=== PATIENT | male | born 1940 | race Caucasian/White ===

== ENCOUNTER 2020-07-21 12:23 | Observation (INO) ==
[~2020-07-21 12:23] MED LIST: Buffered Lidocaine 1% SYRIN 1 ml INTRADERM ONE; Dexamethasone IV 4 MG/ML VIAL 1 ml VIAL IV SLOW PU ONE; Famotidine IV 10 MG/ML 2 ml VIAL (20 mg) IV ONE; Lactated Ringers 1000 ml BAG 1,000 ML IV SCH
[2020-07-21] MEDS ORDERED: ceFAZolin 2 GM PREMIX 2 GM/50 ML BAG ONE (12:34)
[2020-07-21] MEDS ORDERED: Dexamethasone IV 4 MG/ML VIAL 1 ml VIAL ONE (12:34)
[2020-07-21] MEDS ORDERED: Famotidine IV 10 MG/ML 2 ml VIAL (20 mg) ONE (12:35)
[2020-07-21] MEDS ORDERED: Acetaminophen IV 1 GM/100ML 1,000 MG/100 ML VIAL IVPB ONE (14:28)
[2020-07-21] MEDS ORDERED: Naloxone 0.4 mg VIAL 0.4 mg/ml 1 ml VIAL IV PRN (14:28)
[2020-07-21] MEDS ORDERED: Prochlorperazine 5 mg/ml 2 ml VIAL (10 mg) IV PRN (14:28)
[2020-07-21] MEDS ORDERED: Morphine 4 MG/ML VIAL (1 ml) IV PRN (14:28)
[2020-07-21] MEDS ORDERED: fentaNYL 100 mcg/2 ml 50 MCG/ML VIAL ONE ×2 (14:32→18:10)
[2020-07-21] MEDS ORDERED: Lidocaine 2% PF 5 ML VIAL ONE (14:32)
[2020-07-21] MEDS ORDERED: Midazolam 2 mg/2 ml VIAL 1 mg/ml 2 ml VIAL (2 mg) ONE (14:32)
[2020-07-21] MEDS ORDERED: diPHENhydraMINE 25 mg TAB PO PRN (16:10)
[2020-07-21] MEDS ORDERED: Ondansetron 4 mg VIAL 2 MG/ML 2 ml VIAL IV PRN (16:10)
[2020-07-21] MEDS ORDERED: diPHENhydraMINE IV 50 MG/ML 1 ml VIAL (BENADRYL) IV PRN (16:10)
[2020-07-21] MEDS ORDERED: Magnesium Hydroxide LIQ 30 ML UDC PO PRN (16:10)
[2020-07-21] MEDS ORDERED: Lactulose 30 ml UDC PO PRN (16:10)
[2020-07-21] MEDS ORDERED: Ondansetron ODT 4 mg TAB 4 MG TAB PO PRN (16:10)
[2020-07-21] MEDS ORDERED: Morphine 2 MG/ML SYRINGE IV PRN (16:10)
[2020-07-21] MEDS ORDERED: Propofol 10 mg/ml 100 ML BTL 100 ML ONE (17:48)
[2020-07-21] MEDS ORDERED: EPHEDrine (Pressors) 50 MG/ML VIAL ONE (17:49)
[2020-07-21] MEDS ORDERED: Acetaminophen IV 1 GM/100ML 100 ML ONE (18:10)
[2020-07-21] MEDS: fentaNYL 100 mcg/2 ml 50 MCG/ML VIAL IV PRN ×2 (18:27→19:18)
[2020-07-21] MEDS: Lactated Ringers 1000 ml BAG 1,000 ML IV SCH (20:01)
[2020-07-21] MEDS: ceFAZolin 1 GM ADVAN 1 GM in NS 0.9% 50 ML 50 ML IVPB SCH ×3 (21:25→23:53)
[2020-07-21] MEDS: Magnesium Hydroxide LIQ 30 ML UDC PO SCH (22:17)
[2020-07-21] MEDS: oxyCODONE/Acetamin 5/325 mg TAB PO PRN (22:17)
[2020-07-22] MEDS: oxyCODONE/Acetamin 5/325 mg TAB PO PRN ×2 (04:09→12:15)
[2020-07-22] MEDS: Lactated Ringers 1000 ml BAG 1,000 ML IV SCH (06:29)
[2020-07-22 07:04] LABS: Hematocrit 35 % (42-52); Mean Platelet Volume 8.8 fL (7.4-10.4); Platelet Count 176 10^3/uL (150-450)
[2020-07-22 07:19] LABS: BUN/Creatinine Ratio 26.8 (8-20); Calcium 8.7 mg/dL (8.6-10.3); EGFR African American 89.7 (>60); EGFR Non-African American 74.1 (>60); Potassium 4.4 mmol/L (3.5-5.0)
[2020-07-22] MEDS: ceFAZolin 1 GM ADVAN 1 GM in NS 0.9% 50 ML 50 ML IVPB SCH (07:58)
[2020-07-22] MEDS: Magnesium Hydroxide LIQ 30 ML UDC PO SCH (08:01)
[2020-07-22] MEDS ORDERED: Vitamin THERAPEUTIC TAB PO SCH (09:00)
[2020-07-22 11:10] VITALS: BP 117/53
[2020-07-22 11:33] LABS: Urine Appearance Clear; Urine Bilirubin Negative (Negative); Urine Blood Negative (Negative); Urine Color Yellow; Urine Glucose Negative (Negative); Urine Ketones Trace (Negative); Urine Nitrite Negative (Negative); Urine Protein Negative (Negative); Urine Specific Gravity 1.029 (1.010-1.030); Urine Urobilinogen Negative (Negative)
== END 2020-07-22 13:05 | disposition home or self-care (01) ==
LOC: OR 12:23 → SSU 12:23
PROVIDERS: ADMIT Orthopaedic Surgery Adult Reconstructive Orthopaedic Surgery; ATTEND Orthopaedic Surgery Adult Reconstructive Orthopaedic Surgery

== ENCOUNTER 2024-06-24 07:55 | Inpatient (IN) ==
[2024-06-24 08:43] LABS: Hematocrit 39.9 % (38-53); Hemoglobin 13.5 g/dL (13.2-16.3); Mean Corpuscular Hemoglobin 26.7 pg (27-33); Mean Corpuscular Hgb Conc 33.8 g/dL (31-36); Mean Platelet Volume 7.7 fL (7.5-11.2); Platelet Count 195 10^3/uL (150-450); Red Blood Count 5.05 10^6/uL (4.06-5.63); Red Cell Distribution Width 15.3 % (12-17); White Blood Count 2.4 10^3/uL (3.6-10.2)
[2024-06-24] MEDS: Lactated Ringers SEPSIS* BAG 2,040 ML IV ONE (08:48)
[2024-06-24 08:53] LABS: Activated Partial Thrombo Time 32.7 seconds (26.0-38.0); INR 1.15 (0.85-1.14)
[2024-06-24 09:26] LABS: Albumin 4.4 g/dL (3.2-5.2); Albumin/Globulin Ratio 1.7 (1-3); C Reactive Protein 66.3 mg/L (<8.01); Calcium 9.3 mg/dL (8.6-10.3); Creatinine, Serum 1.35 mg/dL (0.67-1.17); Globulin 2.6 g/dL (2-4); Potassium 4.3 mmol/L (3.5-5.0); Total Bilirubin 0.7 mg/dL (0.2-1.0); eGFR CKD-EPI 51.1 (>60)
[2024-06-24 09:38] LABS: ABS Lymphocytes 1.2 10^3/uL (1.0-4.8); ABS Neutrophils 1.2 10^3/uL (1.5-7.6); ABS Nucleated RBC 0.01 10^3/ul; Eosinophil % 0.9 %; Lymphocyte % 49.7 %; Nucleated Red Blood Cells % 0.4 %/100WBC (0.0-0.8)
[2024-06-24] MEDS: cefTRIAXone 1 gm/50 mL D5W 1 GM/50 ML BAG IV ONE (10:45)
[2024-06-24] MEDS ORDERED: Fluticasone NASAL SPRAY 50MCG 16 gm SPRAY BTL INTRANASAL PRN (11:04)
[2024-06-24] MEDS ORDERED: Albuterol/Ipratropium NEB.SOL (2.5/0.5 MG) 3 ML NEB.SOLN INH PRN (11:04)
[2024-06-24] MEDS: Azithromycin 500 mg/250 ml NS 500 MG/250 ML BAG IVPB ONE (11:35)
[2024-06-24] MEDS: Calcium/Vitamin D TAB 250/125 TAB PO SCH (13:45)
[2024-06-24] MEDS: Lactated Ringers 1000 ml BAG 1,000 ML IV SCH (13:46)
[2024-06-24] MEDS: Aspirin EC 81 mg TAB.EC (enteric coated) PO SCH (15:49)
[2024-06-24] MEDS: Albuterol/Ipratropium NEB.SOL (2.5/0.5 MG) 3 ML NEB.SOLN INH SCH (19:29)
[2024-06-24] MEDS: Enoxaparin 40 MG/0.4 ML SYR SUBCUT SCH (20:33)
[2024-06-25 06:33] LABS: Hematocrit 35.2 % (38-53); Hemoglobin 11.8 g/dL (13.2-16.3); Mean Corpuscular Hemoglobin 26.4 pg (27-33); Mean Corpuscular Hgb Conc 33.5 g/dL (31-36); Mean Platelet Volume 8.3 fL (7.5-11.2); Platelet Count 153 10^3/uL (150-450); Red Blood Count 4.45 10^6/uL (4.06-5.63); Red Cell Distribution Width 15.3 % (12-17); White Blood Count 2.9 10^3/uL (3.6-10.2)
[2024-06-25 06:52] LABS: Calcium 8.4 mg/dL (8.6-10.3); Creatinine, Serum 0.95 mg/dL (0.67-1.17); Magnesium 1.7 mg/dL (1.9-2.7); Potassium 4.2 mmol/L (3.5-5.0)
[2024-06-25 08:03] LABS: ABS Lymphocytes 1.7 10^3/uL (1.0-4.8); ABS Neutrophils 1.1 10^3/uL (1.5-7.6); ABS Nucleated RBC 0.01 10^3/ul; Eosinophil % 1.1 %; Lymphocyte % 58.3 %; Nucleated Red Blood Cells % 0.4 %/100WBC (0.0-0.8)
[2024-06-25] MEDS: cefTRIAXone 1 gm/50 mL D5W 1 GM/50 ML BAG IV SCH (09:01)
[2024-06-25] MEDS: Azithromycin 500 mg/250 ml NS 500 MG/250 ML BAG IVPB SCH (09:54)
[2024-06-25 10:03] LABS: Urine Appearance Clear; Urine Bilirubin Negative (Negative); Urine Blood Negative (Negative); Urine Color Yellow; Urine Glucose Negative (Negative); Urine Ketones Negative (Negative); Urine Nitrite Negative (Negative); Urine Protein 1+ (>=30 mg/dL) (Negative); Urine Specific Gravity 1.027 (1.002-1.030); Urine Urobilinogen Negative (Negative)
[2024-06-25 10:07] LABS: Urine Bacteria Absent /HPF (Absent); Urine Red Blood Cell 1+(3-5/hpf) /HPF (0-Trace); Urine White Blood Cell Trace(0-5/hpf) /HPF (0-Trace)
[2024-06-25] MEDS: Magnesium Sulfate 2 gm BAG 2 GM/50 ML BAG IVPB ONE (11:08)
[2024-06-25] MEDS: Albuterol/Ipratropium NEB.SOL (2.5/0.5 MG) 3 ML NEB.SOLN INH SCH (13:07)
[2024-06-26 06:50] LABS: Hematocrit 32.5 % (38-53); Hemoglobin 11.1 g/dL (13.2-16.3); Mean Corpuscular Hemoglobin 26.9 pg (27-33); Mean Corpuscular Hgb Conc 34.1 g/dL (31-36); Mean Platelet Volume 8.1 fL (7.5-11.2); Platelet Count 160 10^3/uL (150-450); Red Blood Count 4.12 10^6/uL (4.06-5.63); Red Cell Distribution Width 15.3 % (12-17); White Blood Count 2.9 10^3/uL (3.6-10.2)
[2024-06-26 07:06] LABS: Calcium 8.3 mg/dL (8.6-10.3); Creatinine, Serum 0.98 mg/dL (0.67-1.17); Magnesium 2.1 mg/dL (1.9-2.7); Potassium 3.9 mmol/L (3.5-5.0); eGFR CKD-EPI 75.1 (>60)
[2024-06-26 07:28] LABS: ABS Neutrophils 0.9 10^3/uL (1.5-7.6)
[2024-06-26 07:32] LABS: ABS Eosinophils 0.1 10^3/uL (0.0-0.5); ABS Lymphocytes 1.8 10^3/uL (1.0-4.8); Lymphocyte % 62.7 %; Nucleated Red Blood Cells % 0.1 %/100WBC (0.0-0.8)
[2024-06-27 05:14] VITALS: BP 120/62
[2024-06-27 06:16] LABS: Hematocrit 31.7 % (38-53); Hemoglobin 10.9 g/dL (13.2-16.3); Mean Corpuscular Hemoglobin 27.1 pg (27-33); Mean Corpuscular Hgb Conc 34.5 g/dL (31-36); Mean Corpuscular Volume 78.4 fL (80-97); Mean Platelet Volume 7.9 fL (7.5-11.2); Platelet Count 182 10^3/uL (150-450); Red Blood Count 4.04 10^6/uL (4.06-5.63); Red Cell Distribution Width 15.3 % (12-17)
[2024-06-27 06:59] LABS: Calcium 8.5 mg/dL (8.6-10.3); eGFR CKD-EPI 73.3 (>60)
[2024-06-27 07:43] LABS: ABS Eosinophils 0.1 10^3/uL (0.0-0.5); ABS Lymphocytes 1.9 10^3/uL (1.0-4.8); ABS Neutrophils 0.9 10^3/uL (1.5-7.6); Anisocytosis 2+; Eosinophil % 3.2 %; Microcytosis 1+; Nucleated Red Blood Cells % 0.1 %/100WBC (0.0-0.8)
[2024-06-27 13:20] LABS: Anaplasma phagocytophilum Negative (Negative); B. miyamotoi PCR, B Negative (Negative); Babesia divergens/MO-1 Negative (Negative); Babesia ducani Negative (Negative); Ehrlichia chaffeensis Negative (Negative); Ehrlichia ewingii/canis Negative (Negative); Ehrlichia muris eauclairensis Negative (Negative)
== END 2024-06-27 09:30 | disposition home or self-care (01) | DRG 871 ==
LOC: EDHOLD 07:55 → ED 07:55 → OBSVTOIN 10:25 → SUATTDRO 10:25 → MED 13:59
PROVIDERS: ADMIT Student in an Organized Health Care Education/Training Program; ATTEND Student in an Organized Health Care Education/Training Program